=== PATIENT | male | born 1965 | race Caucasian/White ===

== ENCOUNTER 2019-02-13 12:04 | Emergency (ER) | payer SELFPAY ==
[~2019-02-13] VITALS: Ht 165.1 cm; Wt 77.3 kg
[2019-02-13] MEDS ORDERED: LISI-661 PO (12:11)
[2019-02-13] MEDS ORDERED: HYDR200T4 PO (12:11)
[2019-02-13] MEDS ORDERED: METF-960 PO (12:11)
[2019-02-13] MEDS ORDERED: PRED5 PO (12:11)
[2019-02-13 12:21] LABS: GLUCOSE,POINT OF CARE 122 MG/DL (70-110)
[2019-02-13] MEDS ORDERED: MORPHINE SULFATE 4 MG/ML SYRINGE IM ONE (14:45)
[2019-02-13] MEDS ORDERED: KETOROLAC TROMETHAMINE 30 MG/ML VIAL IM ONE (14:45)
[2019-02-13] MEDS ORDERED: DIAZEPAM 5 MG/ML 2 ML SYRINGE IM ONE (16:15)
[2019-02-13 20:26] VITALS: BP 151/92
== END 2019-02-13 20:30 | disposition home or self-care (01) ==
LOC: EMS 12:07
DX: S39.012A Strain of muscle, fascia and tendon of lower back, initial encounter (principal); M51.36 Other intervertebral disc degeneration, lumbar region; E11.9 Type 2 diabetes mellitus without complications; I10 Essential (primary) hypertension; Z90.89 Acquired absence of other organs; Z79.84 Long term (current) use of oral hypoglycemic drugs; Z79.899 Other long term (current) drug therapy; X58.XXXA Exposure to other specified factors, initial encounter; Y93.89 Activity, other specified; Y92.89 Other specified places as the place of occurrence of the external cause; Y99.8 Other external cause status
CPT/HCPCS: 72131; 82962; 96372; 99284; J1885 ×2; J2270